=== PATIENT | female | born 1985 | race Caucasian/White ===

== ENCOUNTER → 2020-02-18 | Outpatient (CLI) | payer OTHER, MEDICAID, SELFPAY ==
[2020-02-18 18:26] LABS: Internal QC Validated? YES +Cl - CLEAR BKGD; Pregnancy, Serum, hCG Quali. NEGATIVE Negative
[2020-02-24 07:52] LABS: Immunoglobulin M 204 mg/dL (26-217); V-Zoster IgG (Immunity) > 4000 index (Immune >165)
== END | disposition home or self-care (01) ==
PROVIDERS: PCP Nurse Practitioner Family; Referring Provider Dermatology Pediatric Dermatology; Visit Provider Dermatology Pediatric Dermatology
DX: B02.9 Zoster without complications (principal); D18.01 Hemangioma of skin and subcutaneous tissue
CPT/HCPCS: 36415; 82784; 84703; 86787

== ENCOUNTER → 2021-01-12 15:14 | Outpatient (CLI) | payer OTHER, MEDICAID, SELFPAY ==
[2020-04-21 15:44] VITALS: BMI 23.6
[2021-01-12 15:34] LABS: Absolute Lymphocyte Count 2.51 X10^3/uL (0.83-4.51); Basophil# 0.04 X10^3/uL; Basophil% 0.4 % (0-1); Eosinophil# 0.19 X10^3/uL; Hematocrit 37.4 % (37-47); Hemoglobin 12.7 g/dL (12.0-15.0); Lymphocyte # 2.51 X10^3/ul (0.83-4.51); Lymphocyte % 26.1 % (19-41); Mean Corpuscular Hgb 31.7 pg (27.0-32.0); Mean Corpuscular Volume 93.3 fL (81-99); Mean Platelet Vol. 9.4 fl (6.2-12.0); Monocyte# 0.82 X10^3/uL; Monocyte% 8.5 % (0-10); NRBC Flagged by Analyzer 0 % (0-5); Neutrophil # 6.02 X10^3/uL (2.7-7.7); Neutrophil % 62.6 % (47-70); Platelet Count 186 K/mm3 (150-450); RBC Distribution Width CV 11.9 % (11.6-14.6); RBC Distribution Width SD 40.9 fl (35.1-43.9); Red Blood Count 4.01 M/mm3 (4.2-5.4); White Blood Count 9.6 K/mm3 (4.4-11.0)
[2021-01-12 15:50] LABS: hCG Titer Quant., Serum 25 mIU/mL (1-3)
== END ==
PROVIDERS: PCP Nurse Practitioner Family; Referring Provider Obstetrics & Gynecology; Visit Provider Obstetrics & Gynecology
DX: O20.0 Threatened abortion (principal); Z3A.00 Weeks of gestation of pregnancy not specified
CPT/HCPCS: 36415; 84702; 85025; 86850; 86900; 86901

== ENCOUNTER → 2021-01-14 14:06 | Outpatient (CLI) | payer OTHER, SELFPAY ==
[2021-01-14 14:55] LABS: hCG Titer Quant., Serum 10 mIU/mL (1-3)
== END ==
PROVIDERS: PCP Nurse Practitioner Family; Referring Provider Obstetrics & Gynecology; Visit Provider Obstetrics & Gynecology
DX: O20.0 Threatened abortion (principal); Z3A.00 Weeks of gestation of pregnancy not specified
CPT/HCPCS: 36415; 84702

== ENCOUNTER → 2021-01-30 09:09 | Outpatient (CLI) | payer OTHER, MEDICAID, SELFPAY ==
[2021-01-30 10:35] LABS: Thyroid Stim Hormone (TSH) 1.19 uIU/mL (0.358-3.74)
[2021-02-01 20:07] LABS: Dilute Russell Viper Venom 32.2 sec (0.0-47.0); PTT-LA 33.2 sec (0.0-51.9); Thrombin Time 18.1 sec (0.0-23.0); dPT Confirm Ratio 1.03 Ratio (0.00-1.40)
[2021-02-03 13:00] LABS: Anti-Cardiolipin Ab, IgA, Qn < 9 APL U/mL (0-11); Anti-Cardiolipin Ab, IgG, Qn < 9 GPL U/mL (0-14); Anti-Cardiolipin Ab, IgM, Qn 14 MPL U/mL (0-12); Beta-2-Glycoprotein I IgA <9 (0-25); Beta-2-Glycoprotein I IgG <9 (0-20); Beta-2-Glycoprotein I IgM <9 (0-32); Interpretation Comment: (.)
== END ==
PROVIDERS: PCP Family Medicine; Referring Provider Obstetrics & Gynecology; Visit Provider Obstetrics & Gynecology
DX: N96 Recurrent pregnancy loss (principal)
CPT/HCPCS: 36415; 84443; 86146; 86147

== ENCOUNTER → 2021-04-29 10:55 | Outpatient (CLI) | payer OTHER, MEDICAID, SELFPAY ==
[2021-05-01 17:07] LABS: Dilute Prothrombin Time (dPT) 38.1 sec (0.0-47.6); Dilute Russell Viper Venom 34.1 sec (0.0-47.0); PTT-LA 33.6 sec (0.0-51.9); Thrombin Time 19.1 sec (0.0-23.0); dPT Confirm Ratio 1.24 Ratio (0.00-1.34)
[2021-05-01 20:06] LABS: Anti-Cardiolipin Ab, IgA, Qn < 9 APL U/mL (0-11); Anti-Cardiolipin Ab, IgG, Qn < 9 GPL U/mL (0-14); Anti-Cardiolipin Ab, IgM, Qn 15 MPL U/mL (0-12); Beta-2-Glycoprotein I IgA <9 (0-25); Beta-2-Glycoprotein I IgG <9 (0-20); Beta-2-Glycoprotein I IgM <9 (0-32); Interpretation Comment: (.)
== END ==
PROVIDERS: Nurse Practitioner Women's Health; PCP Family Medicine; Referring Provider Obstetrics & Gynecology; Visit Provider Obstetrics & Gynecology
DX: N96 Recurrent pregnancy loss (principal); N39.0 Urinary tract infection, site not specified
CPT/HCPCS: 36415; 86146; 86147; 87086; 87088

== ENCOUNTER 2021-07-04 10:02 | Outpatient (CLI) | payer OTHER, MEDICAID, SELFPAY ==
[2021-07-06 08:10] LABS: Progesterone Level 18.44 ng/mL (See Comment)
== END 2021-07-04 23:59 | disposition home or self-care (01) ==
LOC: LAB 10:05
PROVIDERS: PCP Family Medicine; Referring Provider Obstetrics & Gynecology; Visit Provider Obstetrics & Gynecology
DX: N96 Recurrent pregnancy loss (principal)
CPT/HCPCS: 36415; 84144

== ENCOUNTER → 2021-09-20 | Outpatient (CLI) | payer OTHER, MEDICAID, SELFPAY ==
[2021-09-20 11:37] LABS: hCG Titer Quant., Serum 38 mIU/mL (1-3)
== END | disposition home or self-care (01) ==
PROVIDERS: PCP Family Medicine; Visit Provider Obstetrics & Gynecology
DX: N92.6 Irregular menstruation, unspecified (principal)
CPT/HCPCS: 84702

== ENCOUNTER → 2021-09-22 | Outpatient (CLI) | payer OTHER, MEDICAID, SELFPAY ==
[2021-09-22 12:39] LABS: hCG Titer Quant., Serum 106 mIU/mL (1-3)
== END | disposition home or self-care (01) ==
LOC: PAVLAB 11:37
PROVIDERS: PCP Family Medicine; Referring Provider Obstetrics & Gynecology; Visit Provider Obstetrics & Gynecology
DX: N96 Recurrent pregnancy loss (principal)
CPT/HCPCS: 36415; 84702

== ENCOUNTER → 2021-10-01 | Outpatient (CLI) | payer OTHER, MEDICAID, SELFPAY ==
--- NOTE | 2021-10-01 11:44 | US_ITS ---
STUDY: FIRST TRIMESTER OBSTETRICAL ULTRASOUND REASON FOR EXAM: Female, 35 years old . Bleeding. Blood clots. LMP: 08/19/2021. TECHNIQUE: Transvaginal TECHNICAL QUALITY: Adequate. PRIOR ULTRASOUND: None. FINDINGS: There is no demonstrated intrauterine gestational sac. There is no demonstrated yolk sac. The placenta is non-visualized. There is no demonstrated embryo ( pole). The estimated gestation age (EGA) by LMP is 6 weeks, 1 days. The estimated date of delivery ([place]) by LMP is 05/26/2022. The uterus measures 9.4 cm x 4.9 cm x 4.6 cm. There is no demonstrated uterine fibroid. The cervix is closed. The right ovary measures 3.1 cm x 1.9 cm x 1.7 cm. There is no right ovarian cyst. There is no visualized right adnexal mass or complex lesion. The left ovary measures 2.2 cm x 1.8 cm x 1.6 cm. There is no left ovarian cyst. There is no visualized left adnexal mass or complex lesion. There is no fluid in the cul de sac. US/Transvaginal w/Preg US IMPRESSION: No evidence of intrauterine gestational sac or pole. Correlation with beta hCG recommended. Electronically Signed: Chong Caicedo MD at 12:35 EDT ,
[2021-10-01 13:21] LABS: hCG Titer Quant., Serum 15 mIU/mL (1-3)
== END | disposition home or self-care (01) ==
PROVIDERS: PCP Family Medicine; Referring Provider Obstetrics & Gynecology; Visit Provider Obstetrics & Gynecology
DX: O99.119 Other diseases of the blood and blood-forming organs and certain disorders involving the immune mechanism complicating pregnancy, unspecified trimester (principal); D68.61 Antiphospholipid syndrome; O99.891 Other specified diseases and conditions complicating pregnancy; N96 Recurrent pregnancy loss
CPT/HCPCS: 36415; 76817; 84702

== ENCOUNTER → 2021-10-05 | Outpatient (CLI) | payer OTHER, MEDICAID, SELFPAY ==
[2021-10-05 16:19] LABS: hCG Titer Quant., Serum 4 mIU/mL (1-3)
== END | disposition home or self-care (01) ==
LOC: PAVLAB 15:39
PROVIDERS: PCP Family Medicine; Referring Provider Obstetrics & Gynecology; Visit Provider Obstetrics & Gynecology
DX: N96 Recurrent pregnancy loss (principal)
CPT/HCPCS: 36415; 84702

== ENCOUNTER → 2022-05-04 | Outpatient (CLI) | payer OTHER, SELFPAY ==
[2022-05-13 10:27] LABS: HPV APTIMA, High Risk Negative (Negative)
== END | disposition home or self-care (01) ==
LOC: LABSPEC 16:49
PROVIDERS: PCP Family Medicine; Visit Provider Nurse Practitioner Women's Health
DX: Z01.419 Encounter for gynecological examination (general) (routine) without abnormal findings (principal)
CPT/HCPCS: 87624; 88175; G0145

== ENCOUNTER → 2024-05-21 | Outpatient (CLI) | payer OTHER, SELFPAY | END | disposition home or self-care (01) | LOC: LABSPEC 16:20 | PROVIDERS: PCP Family Medicine; Referring Provider Nurse Practitioner Family; Visit Provider Nurse Practitioner Family | DX: N94.89 Other specified conditions associated with female genital organs and menstrual cycle (principal); N89.8 Other specified noninflammatory disorders of vagina | CPT/HCPCS: 87070; 87077; 87086; 87088; 87205 ==